=== PATIENT | male | born 1960 | race Caucasian/White ===

== ENCOUNTER 2025-05-29 05:54 | Emergency (ER) | payer MEDICARE ==
[2025-05-29] MEDS ORDERED: EPINEPHrine 1 MG/10 ML Abboject SYRINGE ONE (05:57)
[2025-05-29] MEDS ORDERED: Sodium Bicarb 50 MEQ/50 ML Abboject 8.4% SYRINGE ONE (05:57)
== END 2025-05-29 06:08 | disposition expired ==
LOC: ERS 05:54
DX: I46.9 Cardiac arrest, cause unspecified (principal)
CPT/HCPCS: 31500; J0165